=== PATIENT | male | born 1950 | race Hispanic/Latino ===

== ENCOUNTER → 2019-03-15 | Outpatient (CLI) | payer MEDICARE ==
--- NOTE | 2019-03-15 11:24 | Diagnostic Imaging Report ---
EXAM: Renal Ultrasound INDICATION: ^CHRONIC KIDNEY DZ COMPARISON: None TECHNIQUE: Transverse and longitudinal images of the kidneys and bladder were obtained. FINDINGS: Right Kidney: Length: 11.6 cm Appearance: Normal echogenicity. Collecting system: No hydronephrosis Stones: None Cyst/Mass: None Left Kidney: Length: 10.2 cm Appearance: Normal echogenicity. Collecting system: No hydronephrosis Stones: None Cyst/Mass: None Bladder: No mass or calculi. Bilateral ureteral jets visualized. Prevoid volume estimate of 220 cc. Prostate measures 2.7 x 2.8 x 3.7 cm with volume estimate of 15 cc. IMPRESSION: No hydronephrosis or renal calculi. Signed by: Hallie Almanza MD on 03/15/2019 11:21 AM
== END ==
LOC: US 10:15
PROVIDERS: ATTEND Urology
DX: N18.9 Chronic kidney disease, unspecified (principal)
CPT/HCPCS: 76770

== ENCOUNTER → 2020-12-04 | Outpatient (CLI) | payer MEDICARE | LOC: US 07:37 | PROVIDERS: ATTEND Urology | DX: N18.9 Chronic kidney disease, unspecified (principal) | CPT/HCPCS: 76770 ==